=== PATIENT | female | born 1995 | race American Indian/Alaskan Native ===

== ENCOUNTER 2017-05-13 07:45 | Emergency (ER) | payer OTHER ==
[2017-05-13 07:58] VITALS: BP 125/49
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
[2017-05-13] MEDS: TYLENOL PO ONE (08:53)
== END 2017-05-13 09:10 | disposition home or self-care (01) ==
LOC: ED 07:45
DX: M79.602 Pain in left arm (principal); F17.200 Nicotine dependence, unspecified, uncomplicated; V49.49XA Driver injured in collision with other motor vehicles in traffic accident, initial encounter; Y93.89 Activity, other specified; Y99.8 Other external cause status; Y92.410 Unspecified street and highway as the place of occurrence of the external cause
CPT/HCPCS: 99282